=== PATIENT | female | born 1950 | race Caucasian/White ===

== ENCOUNTER → 2021-02-03 | Outpatient (CLI) | payer OTHER ==
[~2021-02-03] MED LIST: ATOR10 PO; CHOL500045 PO; UBID200C37 PO
== END | disposition home or self-care (01) ==
LOC: OIH 11:15
PROVIDERS: ATTEND Internal Medicine Nephrology
DX: Z13.6 Encounter for screening for cardiovascular disorders (principal)
CPT/HCPCS: 75571

== ENCOUNTER 2021-09-08 07:25 | Day surgery (SDC) | payer MEDICARE ==
[~2021-09-08] VITALS: Ht 149.9 cm; Wt 87.5 kg
[~2021-09-08 07:25] MED LIST changes: +0.9%NACL 1000ML 1,000 ML IV ONE; +CETI-89 PO; +MONT10TA21 PO; +UBID200C18 PO; -UBID200C37 PO
[2021-09-08 07:30] VITALS: BP 184/92
[2021-09-08] MEDS ORDERED: PROPOFOL 10 MG/ML 20ML VIAL IV ONE ×2 (08:56)
[2021-09-08] MEDS ORDERED: FENTANYL CITRATE PF 50 MCG/1 ML 2ML VIAL ONE (09:23)
[2021-09-08] MEDS ORDERED: PHENYLEPHRINE HCL 10 MG/ML 1ML VIAL IV ONE (10:09)
[2021-09-08 10:20] VITALS: BP 91/44
[2021-09-08 10:25] VITALS: BP 94/49
[2021-09-08 10:30] VITALS: BP 118/59
[2021-09-08 11:00] VITALS: BP 136/71
== END 2021-09-08 11:01 | disposition home or self-care (01) ==
LOC: ENDO 07:25 → DAH 07:25 → ENDO 11:01
PROVIDERS: ATTEND Internal Medicine Gastroenterology
DX: Z12.11 Encounter for screening for malignant neoplasm of colon (principal); Z20.822 Contact with and (suspected) exposure to COVID-19; D12.3 Benign neoplasm of transverse colon; K57.30 Diverticulosis of large intestine without perforation or abscess without bleeding; K29.50 Unspecified chronic gastritis without bleeding; K44.9 Diaphragmatic hernia without obstruction or gangrene; K21.00 Gastro-esophageal reflux disease with esophagitis, without bleeding; J45.909 Unspecified asthma, uncomplicated; I10 Essential (primary) hypertension; E66.01 Morbid (severe) obesity due to excess calories; M79.7 Fibromyalgia; M19.90 Unspecified osteoarthritis, unspecified site; M81.0 Age-related osteoporosis without current pathological fracture; E03.9 Hypothyroidism, unspecified; E78.5 Hyperlipidemia, unspecified; Z90.710 Acquired absence of both cervix and uterus; Z90.89 Acquired absence of other organs; Z98.890 Other specified postprocedural states; Z86.010 Personal history of colon polyps; Z68.39 Body mass index [BMI] 39.0-39.9, adult
CPT/HCPCS: 43239; 45380; 87635; 93005; A4215; A4221; A4222; A4223; A4606; A4663; C9803; J2370; J2704 ×2; J3010; J7030

== ENCOUNTER → 2024-04-09 | Outpatient (CLI) | payer MEDICARE ==
[~2024-04-09] MED LIST changes: -0.9%NACL 1000ML 1,000 ML IV ONE; +MONT-46 PO; -MONT10TA21 PO
== END | disposition home or self-care (01) ==
LOC: RAH 12:45
PROVIDERS: ATTEND Internal Medicine Nephrology
DX: Z12.31 Encounter for screening mammogram for malignant neoplasm of breast (principal); M81.0 Age-related osteoporosis without current pathological fracture; Z78.0 Asymptomatic menopausal state
CPT/HCPCS: 77067; 77080

== ENCOUNTER 2025-03-14 05:50 | Day surgery (SDC) | payer MEDICARE ==
[~2025-03-14] VITALS: Ht 147.3 cm; Wt 77.1 kg
[2025-03-14] VITALS (10 sets, daily range): BP systolic 126–157; BP diastolic 71–82; PULSE 68–87; RESP 15–16; TEMP 97.1–97.6
[~2025-03-14 05:50] MED LIST changes: +ACET-66 PO; -MONT-46 PO
[2025-03-14] MEDS: 0.9%NACL 1000ML 1,000 ML IV ONE (06:18)
[2025-03-14] MEDS ORDERED: proPOFol 10 MG/ML 20ML VIAL IV ONE (07:09)
[2025-03-14] MEDS ORDERED: LIDOCAINE HCL 1% 20 ML VIAL ONE (07:09)
--- NOTE | 2025-03-14 08:18 | NUR ---
Full and complete discharge instructions given to Patient and Family both verbally and in writing. Explained GI procedure precautions and follow up. All questions answered. PIV removed with catheter tip intact. Home with Family W/C to POV.
== END 2025-03-14 08:20 | disposition home or self-care (01) ==
LOC: DAH 05:50 → ENDO 05:50
PROVIDERS: ATTEND Internal Medicine
DX: R19.7 Diarrhea, unspecified (principal); K57.30 Diverticulosis of large intestine without perforation or abscess without bleeding; E03.9 Hypothyroidism, unspecified; E78.5 Hyperlipidemia, unspecified; J45.909 Unspecified asthma, uncomplicated; K21.00 Gastro-esophageal reflux disease with esophagitis, without bleeding; R13.10 Dysphagia, unspecified; K44.9 Diaphragmatic hernia without obstruction or gangrene; Z86.2 Personal history of diseases of the blood and blood-forming organs and certain disorders involving the immune mechanism; Z86.0101 Personal history of adenomatous and serrated colon polyps; Z79.899 Other long term (current) drug therapy; Z90.89 Acquired absence of other organs; Z90.710 Acquired absence of both cervix and uterus; Z98.890 Other specified postprocedural states
CPT/HCPCS: 45378; J7030; J2704; A4620; A4215; A4223; A7002; A4222; A4221; A4663; A4606; J3490

== ENCOUNTER → 2025-04-12 | Outpatient (CLI) | payer MEDICARE | END | disposition home or self-care (01) | LOC: RAH 09:45 | PROVIDERS: ATTEND Internal Medicine Nephrology | DX: Z12.31 Encounter for screening mammogram for malignant neoplasm of breast (principal) | CPT/HCPCS: 77067 ==